=== PATIENT | female | born 1945 | race Caucasian/White ===

== ENCOUNTER 2022-03-11 14:45 | Emergency (ER) | payer OTHER ==
[2022-03-11] MEDS ORDERED: NA CHLORIDE 0.9% 1,000 ML ONE (15:15)
[2022-03-11 15:35] LABS: Absolute Lymphocytes (CBC) 0.4 K/uL (0.7-4.9); Hematocrit 38.6 % (36.0-45.0); Lymphocytes % 6.5 % (15.3-44.8); MCV 88.5 fL (80-100); MPV 7.9 fL (7.6-11.3); RBC Red Blood Cell Count 4.36 M/uL (3.86-4.86)
--- NOTE | 2022-03-11 15:44 | RAD REPORT ---
EXAM DESCRIPTION: RAD - Chest Pa And Lat (2 Views) - 03/11/2022 3:37 pm CLINICAL HISTORY: Cough COMPARISON: Chest Pa And Lat (2 Views) dated 06/17/2021; Chest Pa And Lat (2 Views) dated 06/12/2021; Chest Pa And Lat (2 Views) dated 08/05/2017; CHEST PA AND LAT 2 VIEW dated 12/07/2012 FINDINGS: Lines: None. Lungs: No evidence of edema or pneumonia. Pleural: No significant pleural effusions or pneumothorax. Cardiac: The heart size is within normal limits. Mediastinum: Within normal limits. Bones: No acute fractures. Sternotomy. Other: None IMPRESSION: No acute cardiopulmonary disease.
[2022-03-11 15:51] LABS: Albumin 3.5 g/dL (3.4-5.0); Bilirubin Total 0.4 mg/dL (0.2-1.0); Potassium 4.1 mmol/L (3.5-5.1); Protein, Total 7.4 g/dL (6.4-8.2)
[2022-03-11] MEDS ORDERED: ALBUTEROL 2.5 MG/3 ML NEB SOL ONE (16:10)
[2022-03-11] MEDS ORDERED: HYDROCODONE/CHLORPHEN 5 ML/OSYR ONE (16:11)
[2022-03-11] MEDS ORDERED: NA CHLORIDE 0.9% 500 ML ONE (17:05)
[2022-03-11] MEDS ORDERED: OSELTAMIVIR 75 MG CAP ONE (18:47)
[2022-03-11] MEDS ORDERED: ONDANSETRON 4 MG/2 ML VIAL ONE (19:08)
[2022-03-11] MEDS ORDERED: ACETAMINOPHEN 500 MG TAB ONE (19:49)
--- NOTE | 2022-03-11 20:59 | ER ---
Nurse's Notes [facility] Name: Ivanna Marr Age: 76 yrs Sex: Female : 1945 Arrival Date: 03/11/2022 Time: 14:47 Bed 8 Private MD: Jax Gibbs R Diagnosis: Influenza due to identified novel influenza A virus;Dehydration Presentation: 03/11 14:58 Chief complaint: Patient states: Fever, cough, low BP for 2-[address] Villa, 1 BP 70 systolic, so she was sent here to get checked. Fever 102 this monring. Coronavirus screen: Vaccine status: Patient reports receiving the 2nd dose of the covid vaccine. Client denies travel out of the [place] in the last 14 days. cough unrelated to allergies, fatigue, Client presents with at least one sign or symptom that may indicate coronavirus-19. Ebola Screen: Patient denies travel to an Ebola-affected area in the 21 days before illness onset. Initial Sepsis Screen: Does the patient meet any 2 criteria? Systolic BP < 90 mmHg. No. Patient's initial sepsis screen is negative. Does the patient have a suspected source of infection? Yes: Productive cough/pneumonia. Risk Assessment: Do you want to hurt yourself or someone else? Patient reports no desire to harm self or others. Onset of symptoms was March 09, 2022. 14:58 Method Of Arrival: Wheelchair ll1 14:58 Acuity: LATESHA 2 ll1 21:30 Note no further emesis tolerated 120 cc pedialyte. Triage Assessment: 15:00 General: Appears uncomfortable, Behavior is cooperative, appropriate for age. Pain: ll1 Denies pain. Neuro: Reports headache weakness. Cardiovascular: Reports low BP. 15:01 Respiratory: Reports cough that is. ll1 Historical: - Allergies: 14:59 No Known Allergies; ll1 - PMHx: 14:59 thyroid meds; ll1 - PSHx: 14:59 Thyroidectomy; Cholecystectomy; heart valve replaced; ll1 - Immunization history:: Client reports receiving the 2nd dose of the Covid vaccine. - Social history:: Smoking status: Patient denies any tobacco usage or history of. Screenin:31 Abuse screen: Denies threats or abuse. Denies injuries from another. Nutritional kc6 screening: No deficits noted. Tuberculosis screening: No symptoms or risk factors identified. Fall Risk No fall in past 12 months (0 pts). No secondary diagnosis (0 pts). IV access (20 points). Ambulatory Aid- None/Bed Rest/Nurse Assist (0 pts). Gait- Normal/Bed Rest/Wheelchair (0 pts) Mental Status- Oriented to own ability (0 pts). Total Garcia Fall Scale indicates No Risk (0-24 pts). Assessment: 15:29 General: Appears in no apparent distress. uncomfortable, Behavior is calm, cooperative, kc6 appropriate for age. Pain: Denies pain. Neuro: Hsu Agitation-Sedation Scale (RASS): 0 - Alert and Calm Level of Consciousness is awake, alert, obeys commands, Oriented to person, place, time, situation, Appropriate for age. Cardiovascular: Heart tones S1 S2 present Capillary refill < 3 seconds. Respiratory: Airway is patent Respiratory effort is even, unlabored, Respiratory pattern is regular, symmetrical, Breath sounds are clear bilaterally. GI: No signs and/or symptoms were reported involving the gastrointestinal system. : No signs and/or symptoms were reported regarding the genitourinary system. EENT: No signs and/or symptoms were reported regarding the EENT system. Derm: No signs and/or symptoms reported regarding the dermatologic system. Skin is intact, Skin is pink, warm \\T\\ dry. Musculoskeletal: No signs and/or symptoms reported regarding the musculoskeletal system. Circulation, motion, and sensation intact. Capillary refill < 3 seconds, Range of motion: intact in all extremities. 16:33 Reassessment: Patient appears in no apparent distress at this time. No changes from kc6 previously documented assessment. Patient and/or family updated on plan of care and expected duration. Pain level reassessed. Patient is alert, oriented x 3, equal unlabored respirations, skin warm/dry/pink. Patient states feeling better. Patient states symptoms have improved. 17:24 Reassessment: Patient appears in no apparent distress at this time. No changes from kc6 previously documented assessment. Patient and/or family updated on plan of care and expected duration. Pain level reassessed. Patient is alert, oriented x 3, equal unlabored respirations, skin warm/dry/pink. Patient states feeling better. Patient states symptoms have improved. 18:19 Reassessment: Patient appears in no apparent distress at this time. No changes from kc6 previously documented assessment. Patient and/or family updated on plan of care and expected duration. Pain level reassessed. Patient is alert, oriented x 3, equal unlabored respirations, skin warm/dry/pink. Patient denies pain at this time. 19:52 Reassessment: Pt states nausea has improved. GI: Patient currently denies nausea. ll3 Vital Signs: 14:58 BP 86 / 54; Pulse 85; Resp 20; Temp 98.3; Pulse Ox 96% on R/A; Weight 71.67 kg; Height ll1 5 ft. 6 in. (167.64 cm); Pain 0/10; 15:30 BP 93 / 58; Pulse 82; Resp 19 S; Pulse Ox 97% on R/A; Pain 0/10; kc6 16:33 BP 105 / 55; Pulse 88; Resp 17 S; Pulse Ox 95% on R/A; kc6 17:24 BP 105 / 59; Pulse 87; Resp 20 S; Pulse Ox 95% on R/A; Pain 0/10; kc6 18:20 BP 117 / 77; Pulse 96; Resp 20 S; Temp 98.7(O); Pulse Ox 95% on R/A; Pain 0/10; kc6 19:52 Temp 100.8(O); ll3 20:49 BP 99 / 51; Pulse 88; Resp 23; Pulse Ox 92% ; ll3 21:29 BP 101 / 50; Pulse 88; Resp 16; Temp 100(TE); Pulse Ox 95% on R/A; kl 14:58 Body Mass Index 25.50 (71.67 kg, 167.64 cm) ll1 ED Course: 14:47 Patient arrived in ED. mr 14:47 Jax Gibbs MD is Private Physician. mr 14:54 Jeff Khan, [facility] pm1 14:54 Sarabjit Cat MD is Attending Physician. pm1 14:59 Triage completed. ll1 15:01 Arm band placed on Patient placed in an exam room, on a stretcher. ll1 15:04 Kit Lewis RN is Primary Nurse. jd3 15:05 Primary Nurse role handed off by Kit Lewis RN kc6 15:05 Maria Luisa Sewell RN is Primary Nurse. kc6 15:28 CMP Sent. kc6 15:28 CBC with Diff Sent. kc6 15:28 Strep Sent. kc6 15:28 COVID-19 SARS RT PCR (Document "Date of Onset" if Symptomatic) Sent. kc6 15:28 Flu Sent. kc6 15:32 Patient has correct armband on for positive identification. Placed in gown. Bed in low kc6 position. Call light in reach. Side rails up X2. Adult w/ patient. 15:32 No provider procedures requiring assistance completed. Inserted saline lock: 20 gauge kc6 in right antecubital area, using aseptic technique. Blood collected. 15:38 Chest Pa And Lat (2 Views) XRAY In Process Unspecified. EDMS 21:30 IV discontinued, intact, bleeding controlled, No redness/swelling at site. Pressure kl dressing applied. Administered Medications: 15:46 Drug: NS 0.9% 500 ml Volume: 500 ml; Route: IV; Rate: 1 bolus; Site: right antecubital; kc6 17:08 Follow up: Response: No adverse reaction; IV Status: Completed infusion; IV Intake: kc6 1000ml 16:19 Drug: Albuterol 2.5 mg Route: Inhalation; kc6 16:34 Follow up: Response: No adverse reaction kc6 17:19 Follow up: Response: No adverse reaction kc6 16:19 Drug: Tussionex Pennkinetic ER (chlorpheniramine-hydrocodone) Suspension 5 ml Route: PO;kc6 17:19 Follow up: Response: No adverse reaction kc6 17:08 Drug: NS 0.9% 500 ml Route: IV; Rate: bolus; Site: right antecubital; kc6 18:44 Follow up: Response: No adverse reaction; IV Status: Completed infusion; IV Intake: kc6 500ml 18:50 Drug: Tamiflu (oseltamivir) 75 mg Route: PO; kc6 19:13 Drug: Zofran (Ondansetron) 4 mg Route: IVP; Site: right antecubital; kc6 19:53 Follow up: Response: No adverse reaction ll3 19:52 Drug: Tylenol 1000 mg Route: PO; ll3 Medication: 15:32 VIS not applicable for this client. kc6 Intake: 17:08 IV: 1000ml; Total: 1000ml. kc6 18:44 IV: 500ml; Total: 1500ml. kc6 Outcome: 20:58 Discharge ordered by MD. pm1 21:31 Discharged to home via wheelchair, with family. 21:31 Condition: improved 21:31 Discharge instructions given to patient, family, Instructed on discharge instructions, follow up and referral plans. medication usage, Demonstrated understanding of instructions, follow-up care, medications, Prescriptions given X 4. 21:31 Patient left the ED. kl Signatures: Dispatcher [employer] EDMS Nancy Pinto, RN Minal Salazar mr KhanJeff, CREATIVE ARTS THERAPIST CREATIVE ARTS THERAPIST pm1 Kit Lewis RN RN Jason Joiner RN RN ll1 Yann Cook RN RN ll3 Maria Luisa Sewell RN RN kc6
--- NOTE | 2022-03-11 20:59 | EDPHYS ---
Physician Documentation [facility] Name: Ivanna Marr Age: 76 yrs Sex: Female : 1945 Arrival Date: 03/11/2022 Time: 14:47 Bed 8 Private MD: aJx Gibbs R ED Physician Sarabjit Cat HPI: 03/11 15:11 This 76 yrs old Female presents to ER via Wheelchair with complaints of Low BP, Cough, pm1 Fever. 15:11 The patient or guardian reports cough, with no sputum. Onset: The symptoms/episode pm1 began/occurred 3 day(s) ago. Severity of symptoms: in the emergency department the symptoms are actually worse, Fever onset today. Modifying factors: The symptoms are alleviated by nothing, the symptoms are aggravated by nothing. Associated signs and symptoms: Pertinent positives: Decreased appetite. Patient with poor p.o. intake since onset on Thursday. The patient has not experienced similar symptoms in the past. The patient has been recently seen by a physician: the patient's primary care provider, Dr. Gibbs earlier today, with similar presenting complaints, and was sent to the [facility] Emergency Department for further evaluation. Patient with cough onset on Thursday. Patient reports decreased p.o. intake since onset of cough. Patient presented to her PCP today due to onset of fever and was sent to the ER for evaluation due to low blood pressure. Historical: - Allergies: 14:59 No Known Allergies; ll1 - PMHx: 14:59 thyroid meds; ll1 - PSHx: 14:59 Thyroidectomy; Cholecystectomy; heart valve replaced; ll1 - Immunization history:: Client reports receiving the 2nd dose of the Covid vaccine. - Social history:: Smoking status: Patient denies any tobacco usage or history of. ROS: 15:11 Eyes: Negative for injury, pain, redness, and discharge, ENT: Negative for injury, pm1 pain, and discharge, Cardiovascular: Negative for chest pain, palpitations, and edema. 15:11 Abdomen/GI: Negative for abdominal pain, nausea, vomiting, diarrhea, and constipation, Back: Negative for injury and pain, MS/Extremity: Negative for injury and deformity, Skin: Negative for injury, rash, and discoloration, Neuro: Negative for headache, weakness, numbness, tingling, and seizure. 15:11 Constitutional: Positive for body aches, fever, poor PO intake. 15:11 Respiratory: Positive for cough, Slight wheeze per her PCP, Negative for shortness of breath, sputum production. 15:11 All other systems are negative. Exam: 15:11 Constitutional: This is a well developed, well nourished patient who is awake, alert, pm1 and in no acute distress. Head/Face: Normocephalic, atraumatic. 15:11 Back: No spinal tenderness. No costovertebral tenderness. Full range of motion. Skin: Warm, dry with normal turgor. Normal color with no rashes, no lesions, and no evidence of cellulitis. MS/ Extremity: Pulses equal, no cyanosis. Neurovascular intact. Full, normal range of motion. 15:11 Eyes: Exam is negative for acute changes, Periorbital structures: no acute changes, Extraocular movements: no acute changes, Conjunctiva: no acute changes, no injection. 15:11 ENT: Exam is negative for acute changes, Mouth: no acute changes, Lips: dry, Oral mucosa: normal, pink and intact, moist, Posterior pharynx: no acute changes. 15:11 Cardiovascular: Exam negative for acute changes, Rate: normal, Rhythm: regular, Pulses: no pulse deficits are appreciated, Heart sounds: normal, normal S1and S2. 15:11 Respiratory: Exam negative for respiratory distress, shortness of breath, Breath sounds: wheezing: expiratory that is mild, is heard in the left posterior upper lobe. 15:11 Abdomen/GI: Inspection: abdomen appears normal, Palpation: abdomen is soft and non-tender, in all quadrants. 15:11 Neuro: Exam negative for acute changes, Orientation: is normal, Mentation: is normal, Motor: is normal, moves all fours. Vital Signs: 14:58 BP 86 / 54; Pulse 85; Resp 20; Temp 98.3; Pulse Ox 96% on R/A; Weight 71.67 kg; Height ll1 5 ft. 6 in. (167.64 cm); Pain 0/10; 15:30 BP 93 / 58; Pulse 82; Resp 19 S; Pulse Ox 97% on R/A; Pain 0/10; kc6 16:33 BP 105 / 55; Pulse 88; Resp 17 S; Pulse Ox 95% on R/A; kc6 17:24 BP 105 / 59; Pulse 87; Resp 20 S; Pulse Ox 95% on R/A; Pain 0/10; kc6 18:20 BP 117 / 77; Pulse 96; Resp 20 S; Temp 98.7(O); Pulse Ox 95% on R/A; Pain 0/10; kc6 19:52 Temp 100.8(O); ll3 20:49 BP 99 / 51; Pulse 88; Resp 23; Pulse Ox 92% ; ll3 21:29 BP 101 / 50; Pulse 88; Resp 16; Temp 100(TE); Pulse Ox 95% on R/A; kl 14:58 Body Mass Index 25.50 (71.67 kg, 167.64 cm) ll1 MDM: 15:03 Patient medically screened. pm1 17:21 Data reviewed: vital signs. Data interpreted: Pulse oximetry: on room air is 97 %. pm1 Interpretation: normal. Counseling: I had a detailed discussion with the patient and/or guardian regarding: the historical points, exam findings, and any diagnostic results supporting the discharge/admit diagnosis, lab results, radiology results, the need for outpatient follow up, to return to the emergency department if symptoms worsen or persist or if there are any questions or concerns that arise at home. 19:16 ED course: Vomiting episode status post taking Tamiflu. Patient given Zofran and will pm1 p.o. challenge for patient informed patient and daughter that if she does not pass p.o. challenge will admit the patient to the hospital. 03/11 15:10 Order name: Flu; Complete Time: 15:55 pm1 03/11 15:10 Order name: COVID-19 SARS RT PCR (Document "Date of Onset" if Symptomatic); Complete pm1 Time: 17:09 03/11 15:10 Order name: Strep; Complete Time: 16:07 pm1 03/11 15:10 Order name: CBC with Diff; Complete Time: 15:55 pm1 03/11 15:10 Order name: CMP; Complete Time: 15:55 pm1 03/11 16:05 Order name: Throat Culture EDMA 03/11 15:10 Order name: Chest Pa And Lat (2 Views) XRAY; Complete Time: 15:55 pm1 03/11 15:10 Order name: IV Saline Lock; Complete Time: 15:28 pm1 03/11 19:17 Order name: PO challenge; Complete Time: 19:53 pm1 Administered Medications: 15:46 Drug: NS 0.9% 500 ml Volume: 500 ml; Route: IV; Rate: 1 bolus; Site: right antecubital; kc6 17:08 Follow up: Response: No adverse reaction; IV Status: Completed infusion; IV Intake: kc6 1000ml 16:19 Drug: Albuterol 2.5 mg Route: Inhalation; kc6 16:34 Follow up: Response: No adverse reaction kc6 17:19 Follow up: Response: No adverse reaction kc6 16:19 Drug: Tussionex Pennkinetic ER (chlorpheniramine-hydrocodone) Suspension 5 ml Route: PO;kc6 17:19 Follow up: Response: No adverse reaction kc6 17:08 Drug: NS 0.9% 500 ml Route: IV; Rate: bolus; Site: right antecubital; kc6 18:44 Follow up: Response: No adverse reaction; IV Status: Completed infusion; IV Intake: kc6 500ml 18:50 Drug: Tamiflu (oseltamivir) 75 mg Route: PO; kc6 19:13 Drug: Zofran (Ondansetron) 4 mg Route: IVP; Site: right antecubital; kc6 19:53 Follow up: Response: No adverse reaction ll3 19:52 Drug: Tylenol 1000 mg Route: PO; ll3 Disposition Summary: 03/11/22 20:58 Discharge Ordered Location: Home pm1 Problem: new pm1 Symptoms: have improved pm1 Condition: Stable pm1 Diagnosis - Influenza due to identified novel influenza A virus pm1 - Dehydration pm1 Followup: pm1 - With: Emergency Department - When: As needed - Reason: Worsening of condition Followup: pm1 - With: Private Physician - When: 2 - 3 days - Reason: Recheck today's complaints, Continuance of care, Re-evaluation by your physician Discharge Instructions: - Discharge Summary Sheet pm1 - Dehydration, Elderly pm1 - Influenza, Adult pm1 - Rehydration, Elderly pm1 Forms: - Medication Reconciliation Form pm1 - Thank You Letter pm1 - Antibiotic Education pm1 - Prescription Opioid Use pm1 Prescriptions: - Ventolin HFA 90 mcg/actuation Inhalation HFA aerosol inhaler - inhale 1 puff by INHALATION route every 4-6 hours As needed; 1 Inhaler; pm1 Refills: 0, Product Selection Permitted - ondansetron 4 mg Oral tablet,disintegrating - place 1 tablet by TRANSLINGUAL route every 8 hours As needed; 10 tablet; pm1 Refills: 0, Product Selection Permitted - Tamiflu 75 mg Oral Capsule - take 1 tablet by ORAL route every 12 hours for 5 days; 10 tablet; Refills: 0, pm1 Product Selection Permitted - Guaifenesin AC 10-100 mg/5 mL Oral Liquid - take 10 milliliters by ORAL route every 4 hours As needed; 240 milliliter; pm1 Refills: 0, Product Selection Permitted Signatures: Dispatcher [employer] Jeff Reyes NP MULTIMEDIA DEVELOPER pm1 Jason Pinto RN RN ll1 Yann Cook RN RN ll3 Maria Luisa Sewell RN RN kc6
[2022-03-11 22:14] VITALS: BP 101/50; TEMP 100; O2SAT 95
== END 2022-03-11 21:31 | disposition home or self-care (01) ==
LOC: ER 14:45
DX: J10.1 Influenza due to other identified influenza virus with other respiratory manifestations (principal); E86.0 Dehydration; Z20.822 Contact with and (suspected) exposure to COVID-19; Z95.2 Presence of prosthetic heart valve
CPT/HCPCS: 36415; 71046; 80053; 85025; 87070; 87081; 87804; 96361; 96374; 99284; J2405; J7030; J7040; U0003